=== PATIENT | female | born 1990 | race Caucasian/White ===

== ENCOUNTER 2017-10-08 11:12 | Emergency (ER) | payer BC, OTHER, MEDICAID ==
[2017-10-08 15:08] LABS: ADD MAN DIFF? NO
[2017-10-08 15:11] LABS: WHITE BLOOD COUNT 9.1 10^3/ul (4.8-10.8)
[2017-10-08 15:11] LABS: BASOPHILS % 0.3 % (0.0-2.0); EOSINOPHILS # 0.1 10^3/ul (0.0-0.5); EOSINOPHILS % 1.5 % (0.0-7.0); HEMATOCRIT 39.9 % (37.0-47.0); HEMOGLOBIN 13.6 g/dl (12.0-16.0); LYMPHOCYTES # 2.6 10^3/ul (0.8-2.9); LYMPHOCYTES % 28.6 % (15.0-51.0); MEAN CORPUSCULAR HGB CONC 34.1 g/dl (32.0-37.0); MEAN CORPUSCULAR VOLUME 88.1 fl (82.0-101.0); MEAN PLATELET VOLUME 9.2 fl (7.4-10.4); MONOCYTE # 0.8 10^3/ul (0.3-0.9); MONOCYTES % 8.6 % (0.0-11.0); NEUTROPHIL # 5.5 10^3/ul (1.6-7.5); NEUTROPHILS % 60.7 % (39.0-77.0); PLATELET COUNT 337 10^3/UL (140-415); RED BLOOD COUNT 4.53 10^6/ul (4.20-5.40); RED CELL DISTRIBUTION WIDTH 12.7 % (11.5-14.5)
[2017-10-08 15:16] LABS: ADD UMIC YES; UR ASCORBIC ACID NEGATIVE (NEGATIVE); UR BACTERIA FEW /HPF (NONE SEEN); UR BILIRUBIN (Dip) NEGATIVE (NEGATIVE); UR BLOOD (Dip) 3+ mg/dL (NEGATIVE); UR CLARITY SLIGHTLY CLOUDY (CLEAR); UR COLOR YELLOW (YELLOW); UR GLUCOSE (Dip) NEGATIVE (NEGATIVE); UR KETONES (Dip) NEGATIVE (NEGATIVE); UR LEUKOCYTE ESTERASE (Dip) 1+ Leu/ul (NEGATIVE); UR MUCUS FEW /HPF (NONE SEEN); UR NITRITE (Dip) NEGATIVE (NEGATIVE); UR RBC 4 /HPF (0-5); UR SPECIFIC GRAVITY (Dip) 1.015 (1.003-1.030); UR SQUAMOUS EPITHELIAL CELL FEW /HPF (FEW); UR TOTAL PROTEIN (Dip) NEGATIVE (NEGATIVE); UR UROBILINOGEN (Dip) 2+ mg/dL (NEGATIVE); UR WBC 16 /HPF (0-5)
== END 2017-10-08 17:10 | disposition home or self-care (01) ==
LOC: FTE 11:12
DX: O03.9 Complete or unspecified spontaneous abortion without complication (principal); O46.8X1 Other antepartum hemorrhage, first trimester; R10.2 Pelvic and perineal pain
CPT/HCPCS: 36415; 76801; 76817; 81001; 84702; 85025; 86900; 86901; 99284-25

== ENCOUNTER 2017-10-27 22:24 | Emergency (ER) | payer SELFPAY, BC | END 2017-10-28 00:47 | disposition left against medical advice (07) | LOC: E/R 22:24 | DX: Z53.21 Procedure and treatment not carried out due to patient leaving prior to being seen by health care provider (principal) ==

== ENCOUNTER 2017-10-31 15:41 | Inpatient (IN) | payer OTHER, MEDICAID ==
[2017-10-31] MEDS: SOD CHLORIDE 0.9% 1,000 ML IV ×2 (17:51→18:11)
[2017-10-31 18:11] LABS: ADD MAN DIFF? NO
[2017-10-31 18:14] LABS: BASOPHIL # 0.1 10^3/ul (0.0-0.1); BASOPHILS % 0.6 % (0.0-2.0); HEMATOCRIT 38.7 % (37.0-47.0); LYMPHOCYTES # 3.2 10^3/ul (0.8-2.9); LYMPHOCYTES % 22.2 % (15.0-51.0); MEAN CORPUSCULAR HEMOGLOBIN 29.7 pg (29.0-33.0); MEAN CORPUSCULAR HGB CONC 33.6 g/dl (32.0-37.0); MEAN CORPUSCULAR VOLUME 88.6 fl (82.0-101.0); MEAN PLATELET VOLUME 9.5 fl (7.4-10.4); MONOCYTES % 6.6 % (0.0-11.0); NEUTROPHIL # 9.1 10^3/ul (1.6-7.5); NEUTROPHILS % 63.3 % (39.0-77.0); PLATELET COUNT 384 10^3/UL (140-415); RED BLOOD COUNT 4.37 10^6/ul (4.20-5.40); RED CELL DISTRIBUTION WIDTH 13.1 % (11.5-14.5)
[2017-10-31 18:14] LABS: WHITE BLOOD COUNT 14.4 10^3/ul (4.8-10.8)
[2017-10-31] MEDS: ACETAMINOPHEN 500 MG TAB PO (18:24)
[2017-10-31 18:32] LABS: PROTIME 12.2 Sec (11.9-14.9)
[2017-10-31 18:33] LABS: PARTIAL THROMBOPLASTIN TIME 27.5 Sec (25.0-35.0)
[2017-10-31] MEDS: IPRATROPIUM (NEB) 0.5 MG/2.5 ML AMP NEB (18:53)
[2017-10-31] MEDS: LEVALBUTEROL (NEB) 1.25 MG/0.5 ML AMP INH (18:53)
[2017-10-31 19:09] LABS: ADD MAN DIFF? NO
[2017-10-31 19:10] LABS: BASOPHILS % 0.3 % (0.0-2.0); EOSINOPHILS # 0.6 10^3/ul (0.0-0.5); EOSINOPHILS % 5.3 % (0.0-7.0); HEMATOCRIT 31.1 % (37.0-47.0); HEMOGLOBIN 10.6 g/dl (12.0-16.0); LYMPHOCYTES # 2.7 10^3/ul (0.8-2.9); MEAN CORPUSCULAR HEMOGLOBIN 30.5 pg (29.0-33.0); MEAN CORPUSCULAR HGB CONC 34.1 g/dl (32.0-37.0); MEAN CORPUSCULAR VOLUME 89.6 fl (82.0-101.0); MEAN PLATELET VOLUME 9.3 fl (7.4-10.4); MONOCYTE # 0.8 10^3/ul (0.3-0.9); NEUTROPHIL # 7.4 10^3/ul (1.6-7.5); NEUTROPHILS % 63.9 % (39.0-77.0); PLATELET COUNT 299 10^3/UL (140-415); RED BLOOD COUNT 3.47 10^6/ul (4.20-5.40); RED CELL DISTRIBUTION WIDTH 12.9 % (11.5-14.5)
[2017-10-31 19:10] LABS: WHITE BLOOD COUNT 11.6 10^3/ul (4.8-10.8)
[2017-10-31] MEDS: morphine 4 MG/ML VIAL IV (20:18)
[2017-10-31] MEDS ORDERED: ONDANSETRON 4 MG INJ IV ×2 (21:00→23:30)
[2017-10-31] MEDS: OXYTOCIN 30 UNITS in LACTATED RINGER'S 497 ML IV (23:29)
[2017-10-31] MEDS: ACETAMINOPHEN 325 MG TAB PO (23:51)
[2017-11-01 06:19] LABS: ADD MAN DIFF? NO
[2017-11-01 06:27] LABS: WHITE BLOOD COUNT 15.3 10^3/ul (4.8-10.8)
[2017-11-01 06:27] LABS: BASOPHIL # 0.1 10^3/ul (0.0-0.1); BASOPHILS % 0.5 % (0.0-2.0); EOSINOPHILS # 0.9 10^3/ul (0.0-0.5); EOSINOPHILS % 5.6 % (0.0-7.0); HEMATOCRIT 25.8 % (37.0-47.0); HEMOGLOBIN 8.7 g/dl (12.0-16.0); LYMPHOCYTES # 3.5 10^3/ul (0.8-2.9); LYMPHOCYTES % 22.7 % (15.0-51.0); MEAN CORPUSCULAR HGB CONC 33.7 g/dl (32.0-37.0); MEAN PLATELET VOLUME 9.6 fl (7.4-10.4); MONOCYTE # 0.9 10^3/ul (0.3-0.9); MONOCYTES % 5.6 % (0.0-11.0); PLATELET COUNT 266 10^3/UL (140-415); RED CELL DISTRIBUTION WIDTH 13.2 % (11.5-14.5)
[2017-11-01] MEDS: morphine 4 MG/ML VIAL IV (08:48)
[2017-11-01] MEDS: LACTATED RINGER'S 1,000 ML IV ×2 (14:18→22:21)
[2017-11-01] MEDS ORDERED: PROPOFOL 20 ML (18:40)
[2017-11-01] MEDS ORDERED: MIDAZOLAM 1 MG/ML 2 ML INJ (18:41)
[2017-11-01] MEDS ORDERED: FENTAnyl 50 MCG/ML VIAL (18:41)
[2017-11-01] MEDS ORDERED: LABETALOL HCL 20MG INJ IV (19:30)
[2017-11-01] MEDS ORDERED: FENTAnyl 50 MCG/ML VIAL IV ×3 (19:30)
[2017-11-01] MEDS ORDERED: HYDROmorphONE (0.2 MG/ML) 10ML SYG IV ×2 (19:30)
[2017-11-01] MEDS ORDERED: DIPHENHYDRAMINE 50 MG INJ IV (19:30)
[2017-11-01] MEDS ORDERED: OXYCODONE/ACETAMINOPHEN (5/325) TAB PO (19:30)
[2017-11-01] MEDS ORDERED: ALBUMIN HUMAN 5% 250 ML IV (19:30)
[2017-11-01] MEDS ORDERED: MEPERIDINE 25 MG INJ IV (19:30)
[2017-11-01] MEDS ORDERED: ONDANSETRON 4 MG INJ IV (19:30)
[2017-11-01] MEDS ORDERED: EPHEDrine SULFATE 50 MG/5 ML SYG IV (19:30)
[2017-11-01] MEDS ORDERED: METOCLOPRAMIDE 10 MG INJ IV (19:30)
[2017-11-01] MEDS ORDERED: KETOROLAC 30 MG INJ (19:39)
[2017-11-01] MEDS ORDERED: METOCLOPRAMIDE 10 MG INJ (19:39)
[2017-11-01] MEDS ORDERED: DEXAMETHASONE 4 MG/ML 1 ML INJ (19:39)
[2017-11-01] MEDS ORDERED: CEFAZOLIN 1 GM INJ (19:39)
[2017-11-01] MEDS ORDERED: ONDANSETRON 4 MG INJ (19:39)
[2017-11-01] MEDS ORDERED: OXYTOCIN 10 UNIT INJ (19:53)
[2017-11-02 06:34] LABS: ADD MAN DIFF? NO
[2017-11-02] MEDS: LACTATED RINGER'S 1,000 ML IV ×2 (06:34→14:30)
[2017-11-02 06:36] LABS: WHITE BLOOD COUNT 16.4 10^3/ul (4.8-10.8)
[2017-11-02 06:36] LABS: BASOPHILS % 0.2 % (0.0-2.0); EOSINOPHILS % 0.1 % (0.0-7.0); HEMATOCRIT 24.6 % (37.0-47.0); HEMOGLOBIN 8.3 g/dl (12.0-16.0); LYMPHOCYTES # 1.5 10^3/ul (0.8-2.9); LYMPHOCYTES % 9.1 % (15.0-51.0); MEAN CORPUSCULAR HEMOGLOBIN 30.3 pg (29.0-33.0); MEAN CORPUSCULAR HGB CONC 33.7 g/dl (32.0-37.0); MEAN CORPUSCULAR VOLUME 89.8 fl (82.0-101.0); MEAN PLATELET VOLUME 9.8 fl (7.4-10.4); MONOCYTE # 0.4 10^3/ul (0.3-0.9); MONOCYTES % 2.7 % (0.0-11.0); NEUTROPHIL # 14.3 10^3/ul (1.6-7.5); NEUTROPHILS % 87.3 % (39.0-77.0); PLATELET COUNT 266 10^3/UL (140-415); RED BLOOD COUNT 2.74 10^6/ul (4.20-5.40); RED CELL DISTRIBUTION WIDTH 13.2 % (11.5-14.5)
[2017-11-02] MEDS: DOXYCYCLINE 100 MG TAB PO (11:42)
[2017-11-02] MEDS: DOCUSATE SODIUM 100 MG CAP PO (11:43)
[2017-11-02] MEDS: IBUPROFEN 600 MG TAB PO ×2 (11:45→17:36)
[2017-11-02 14:18] LABS: ADD MAN DIFF? NO
[2017-11-02 14:20] LABS: BASOPHIL # 0.1 10^3/ul (0.0-0.1); BASOPHILS % 0.3 % (0.0-2.0); EOSINOPHILS # 0.2 10^3/ul (0.0-0.5); EOSINOPHILS % 1.2 % (0.0-7.0); HEMATOCRIT 24.8 % (37.0-47.0); HEMOGLOBIN 8.5 g/dl (12.0-16.0); LYMPHOCYTES # 3.2 10^3/ul (0.8-2.9); LYMPHOCYTES % 20.2 % (15.0-51.0); MEAN CORPUSCULAR HEMOGLOBIN 30.8 pg (29.0-33.0); MEAN CORPUSCULAR HGB CONC 34.3 g/dl (32.0-37.0); MEAN CORPUSCULAR VOLUME 89.9 fl (82.0-101.0); MEAN PLATELET VOLUME 9.5 fl (7.4-10.4); MONOCYTE # 1.2 10^3/ul (0.3-0.9); MONOCYTES % 7.7 % (0.0-11.0); NEUTROPHIL # 10.9 10^3/ul (1.6-7.5); NEUTROPHILS % 69.9 % (39.0-77.0); PLATELET COUNT 301 10^3/UL (140-415); RED BLOOD COUNT 2.76 10^6/ul (4.20-5.40); RED CELL DISTRIBUTION WIDTH 13.3 % (11.5-14.5)
[2017-11-02 14:20] LABS: WHITE BLOOD COUNT 15.6 10^3/ul (4.8-10.8)
[2017-11-02] MEDS: FERROUS SULFATE (EC) 325 MG TAB PO (14:37)
== END 2017-11-02 20:55 | disposition home or self-care (01) | DRG 770 ==
LOC: MS3 20:50 → FTE 15:41 → MS2 11-01 15:20
PROC: 10D17ZZ Extraction of Products of Conception, Retained, Via Natural or Artificial Opening (ICD-10-PCS; principal; 2017-11-01 14:00)
PROC: 3E033VJ Introduction of Other Hormone into Peripheral Vein, Percutaneous Approach (ICD-10-PCS; 2017-11-01 14:00)
DX: O03.4 Incomplete spontaneous abortion without complication (principal); D62 Acute posthemorrhagic anemia
CPT/HCPCS: 36415; 76801; 76817; 84702; 85025; 85610; 85730; 86850; 86900; 86901; 88305; 94664; 96374; 96375; 99291-25

== ENCOUNTER 2018-10-09 11:34 | Inpatient (IN) | payer BC ==
[~2018-10-09 11:34] MED LIST: OXYTOCIN 30 UNITS/LR 500 ML BAG IV; PHENYLephrine (100 MCG/ML) 5ML SYG
[2018-10-09] MEDS: LACTATED RINGER'S 1,000 ML IV ×2 (13:10→14:27)
[2018-10-09 13:12] LABS: ADD MAN DIFF? NO
[2018-10-09 13:15] LABS: BASOPHILS % 0.4 % (0.0-2.0); EOSINOPHILS # 0.2 10^3/ul (0.0-0.5); EOSINOPHILS % 1.7 % (0.0-7.0); HEMATOCRIT 29.3 % (37.0-47.0); HEMOGLOBIN 9.3 g/dl (12.0-16.0); LYMPHOCYTES # 1.8 10^3/ul (0.8-2.9); LYMPHOCYTES % 19.6 % (15.0-51.0); MEAN CORPUSCULAR HEMOGLOBIN 27.6 pg (29.0-33.0); MEAN CORPUSCULAR HGB CONC 31.7 g/dl (32.0-37.0); MEAN CORPUSCULAR VOLUME 86.9 fl (82.0-101.0); MEAN PLATELET VOLUME 9.7 fl (7.4-10.4); MONOCYTE # 0.8 10^3/ul (0.3-0.9); MONOCYTES % 8.3 % (0.0-11.0); NEUTROPHIL # 6.2 10^3/ul (1.6-7.5); NEUTROPHILS % 68.6 % (39.0-77.0); PLATELET COUNT 273 10^3/UL (140-415); RED BLOOD COUNT 3.37 10^6/ul (4.20-5.40); RED CELL DISTRIBUTION WIDTH 13.2 % (11.5-14.5)
[2018-10-09 13:17] LABS: ADD UMIC YES; UR ASCORBIC ACID NEGATIVE (NEGATIVE); UR BACTERIA FEW /HPF (NONE SEEN); UR BILIRUBIN (Dip) NEGATIVE (NEGATIVE); UR BLOOD (Dip) NEGATIVE (NEGATIVE); UR CLARITY CLOUDY (CLEAR); UR COLOR YELLOW (YELLOW); UR GLUCOSE (Dip) NEGATIVE (NEGATIVE); UR KETONES (Dip) NEGATIVE (NEGATIVE); UR LEUKOCYTE ESTERASE (Dip) 1+ Leu/ul (NEGATIVE); UR MUCUS FEW /HPF (NONE SEEN); UR NITRITE (Dip) NEGATIVE (NEGATIVE); UR RBC 2 /HPF (0-5); UR SPECIFIC GRAVITY (Dip) 1.017 (1.003-1.030); UR SQUAMOUS EPITHELIAL CELL MODERATE /HPF (FEW); UR TOTAL PROTEIN (Dip) NEGATIVE (NEGATIVE); UR UROBILINOGEN (Dip) 1+ mg/dL (NEGATIVE); UR WBC 6 /HPF (0-5)
[2018-10-09 13:33] LABS: INR 0.89; PROTIME 12.1 Sec (11.9-14.9); PT RATIO 0.9
[2018-10-09 13:34] LABS: PARTIAL THROMBOPLASTIN TIME 25.9 Sec (23.0-35.0)
[2018-10-09] MEDS ORDERED: METHYLERGONOVINE 0.2 MG INJ IM ×2 (15:00→22:00)
[2018-10-09] MEDS ORDERED: CEFAZOLIN 2 GM/50 ML (PMX) 50 ML IVPB (15:00)
[2018-10-09] MEDS ORDERED: MISOPROSTOL 200 MCG TAB PR ×2 (15:00→22:00)
[2018-10-09] MEDS ORDERED: OXYTOCIN 30 UNITS/LR 500 ML IV ×2 (15:00→22:00)
[2018-10-09] MEDS ORDERED: CARBOPROST 250 MCG INJ IM ×2 (15:00→22:00)
[2018-10-09 15:42] LABS: HEPATITIS B SURFACE ANTIGEN NEGATIVE (NEGATIVE)
[2018-10-09] MEDS ORDERED: NALOXONE (0.4 MG/ML) INJ IV (18:00)
[2018-10-09] MEDS ORDERED: KETOROLAC 30 MG INJ IV (18:00)
[2018-10-09] MEDS ORDERED: HYDROmorphONE 0.5 MG/0.5 ML SYG IV ×2 (18:00)
[2018-10-09] MEDS ORDERED: HYDROmorphONE 1 MG/5 ML IV SYRINGE IV ×3 (18:00)
[2018-10-09] MEDS ORDERED: ONDANSETRON 4 MG INJ IV (18:00)
[2018-10-09] MEDS ORDERED: ALBUTEROL 0.083% (NEB) 2.5 MG/3 ML AMP HHN (18:00)
[2018-10-09] MEDS ORDERED: FENTAnyl 50 MCG/ML VIAL IV ×2 (18:00)
[2018-10-09] MEDS ORDERED: DIPHENHYDRAMINE 50 MG INJ IV ×2 (18:00)
[2018-10-09 19:16] LABS: RAPID PLASMA REAGIN NONREACTIVE (NR)
[2018-10-09] MEDS: ONDANSETRON 4 MG INJ IV (19:37)
[2018-10-09] MEDS: OXYTOCIN 30 UNITS/LR 500 ML IV ×2 (19:37→21:23)
[2018-10-09] MEDS: KETOROLAC 30 MG INJ IV (20:06)
[2018-10-09] MEDS: METOCLOPRAMIDE 10 MG INJ IV (20:47)
[2018-10-09] MEDS ORDERED: LANOLIN HPA 1 PKT TOP (22:00)
[2018-10-09] MEDS ORDERED: NACL 0.9% 3 ML SYG IV (22:00)
[2018-10-10] MEDS: OXYTOCIN 30 UNITS/LR 500 ML IV (01:35)
[2018-10-10 06:44] LABS: ADD MAN DIFF? NO
[2018-10-10 06:48] LABS: BASOPHIL # 0.1 10^3/ul (0.0-0.1); BASOPHILS % 0.3 % (0.0-2.0); EOSINOPHILS % 0.2 % (0.0-7.0); HEMATOCRIT 25.4 % (37.0-47.0); HEMOGLOBIN 8.2 g/dl (12.0-16.0); LYMPHOCYTES # 1.6 10^3/ul (0.8-2.9); LYMPHOCYTES % 9.9 % (15.0-51.0); MEAN CORPUSCULAR HEMOGLOBIN 27.9 pg (29.0-33.0); MEAN CORPUSCULAR HGB CONC 32.3 g/dl (32.0-37.0); MEAN CORPUSCULAR VOLUME 86.4 fl (82.0-101.0); MEAN PLATELET VOLUME 9.9 fl (7.4-10.4); MONOCYTE # 1.3 10^3/ul (0.3-0.9); MONOCYTES % 8.1 % (0.0-11.0); NEUTROPHIL # 13.2 10^3/ul (1.6-7.5); NEUTROPHILS % 80.7 % (39.0-77.0); PLATELET COUNT 243 10^3/UL (140-415); RED BLOOD COUNT 2.94 10^6/ul (4.20-5.40)
[2018-10-10 06:48] LABS: WHITE BLOOD COUNT 16.4 10^3/ul (4.8-10.8)
[2018-10-10] MEDS: LACTATED RINGER'S 1,000 ML IV (11:40)
[2018-10-10] MEDS: SENNA/DOCUSATE NA (8.6MG/50MG) TAB PO ×2 (11:41→20:55)
[2018-10-10] MEDS: KETOROLAC 30 MG INJ IV (15:12)
[2018-10-10] MEDS: INFLUENZA VIRUS VACCINE 0.5 ML (DISPENSING) IM* (15:16)
[2018-10-10] MEDS: IBUPROFEN 600 MG TAB PO (17:50)
[2018-10-10] MEDS: OXYCODONE/ACETAMINOPHEN (5/325) TAB PO (21:01)
[2018-10-11] MEDS: IBUPROFEN 600 MG TAB PO ×5 (00:30→23:30)
[2018-10-11] MEDS: OXYCODONE/ACETAMINOPHEN (5/325) TAB PO ×2 (04:21→09:00)
[2018-10-11] MEDS: SENNA/DOCUSATE NA (8.6MG/50MG) TAB PO ×2 (09:00→21:01)
[2018-10-11] MEDS: FERROUS SULFATE (EC) 325 MG TAB PO ×2 (14:31→21:01)
[2018-10-11] MEDS: MAGNESIUM HYDROXIDE 30ML CUP PO (14:31)
[2018-10-12] MEDS: OXYCODONE/ACETAMINOPHEN (5/325) TAB PO ×2 (01:24→10:02)
[2018-10-12] MEDS: IBUPROFEN 600 MG TAB PO ×2 (05:46→12:14)
[2018-10-12 06:38] LABS: ADD MAN DIFF? NO
[2018-10-12 06:40] LABS: BASOPHILS % 0.3 % (0.0-2.0); EOSINOPHILS # 0.2 10^3/ul (0.0-0.5); EOSINOPHILS % 1.7 % (0.0-7.0); HEMATOCRIT 26.1 % (37.0-47.0); HEMOGLOBIN 8.2 g/dl (12.0-16.0); LYMPHOCYTES # 1.8 10^3/ul (0.8-2.9); LYMPHOCYTES % 15.5 % (15.0-51.0); MEAN CORPUSCULAR HGB CONC 31.4 g/dl (32.0-37.0); MEAN CORPUSCULAR VOLUME 89.1 fl (82.0-101.0); MEAN PLATELET VOLUME 9.5 fl (7.4-10.4); MONOCYTE # 0.9 10^3/ul (0.3-0.9); MONOCYTES % 7.9 % (0.0-11.0); NEUTROPHIL # 8.5 10^3/ul (1.6-7.5); NEUTROPHILS % 73.4 % (39.0-77.0); NUCLEATED RED BLOOD CELLS% 0.2 /100WBC (0.0-0.0); PLATELET COUNT 291 10^3/UL (140-415); RED BLOOD COUNT 2.93 10^6/ul (4.20-5.40); RED CELL DISTRIBUTION WIDTH 13.5 % (11.5-14.5)
[2018-10-12 06:40] LABS: WHITE BLOOD COUNT 11.6 10^3/ul (4.8-10.8)
[2018-10-12] MEDS: SENNA/DOCUSATE NA (8.6MG/50MG) TAB PO (10:02)
[2018-10-12] MEDS: FERROUS SULFATE (EC) 325 MG TAB PO ×2 (10:02→17:12)
[2018-10-12] MEDS: DIPHTH/TET/ACEL PERTUSS (ADULT) 0.5 ML VIAL IM* (17:22)
== END 2018-10-12 18:05 | disposition home or self-care (01) | DRG 788 ==
LOC: OBT 11:34 → L-D 11:34 → OBT 14:35 → L-D 14:35 → PP1 21:41
PROC: 10D00Z1 Extraction of Products of Conception, Low, Open Approach (ICD-10-PCS; principal; 2018-10-09)
DX: O34.219 Maternal care for unspecified type scar from previous cesarean delivery (principal); G89.18 Other acute postprocedural pain; Z3A.37 37 weeks gestation of pregnancy; Z37.0 Single live birth; Z23 Encounter for immunization
CPT/HCPCS: 76815; 76818; 81001; 85025; 85610; 85730; 86592; 86850; 86900; 86901; 87340; 99464

== ENCOUNTER 2018-12-09 10:37 | Emergency (ER) | payer BC ==
[2018-12-09] MEDS: DEXAMETHASONE 10 MG/ML 1 ML INJ IM (11:32)
[2018-12-09] MEDS: ALBUTEROL 0.083% (NEB) 2.5 MG/3 ML AMP NEB (11:34)
[2018-12-09] MEDS: IPRATROPIUM (NEB) 0.5 MG/2.5 ML AMP NEB (11:34)
== END 2018-12-09 13:10 | disposition home or self-care (01) ==
LOC: FTE 10:37
DX: J45.901 Unspecified asthma with (acute) exacerbation (principal); J06.9 Acute upper respiratory infection, unspecified
CPT/HCPCS: 71045; 94664; 96372; 99284-25